=== PATIENT | female | born 1945 | race Caucasian/White ===

== ENCOUNTER 2016-10-20 08:35 | Emergency (ER) | payer OTHER ==
[~2016-10-20] VITALS: Ht 162.6 cm; Wt 84.4 kg
[~2016-10-20 08:35] MED LIST: AGGRENOX1 CAPSULE PO; ALBUTEROL SULF8.5 GM IH; ALEVE220 MG PO; ALLERGY RELIEF1 EAC4 PO; ALLERGY RELIEF10 M5 PO; ANTI-DIARRHEA2 MG PO; ASPIRIN81 M2 PO; ATIVAN0.5 MG PO; BREO ELLIPTA I1 EACH IH; CALCIUM 600 +1 EA15 PO; CALCIUM 600 +1 EAC9 PO; CALTRATE PLUS1 EACH PO; CARVEDILOL25 MG PO; CARVEDILOL6.25 MG PO; CELEXA10 MG PO; CENTRUM SILVER1 EAC3 PO; CENTRUM SILVER1 EAC4 PO; COREG25 M1 PO; COREG6.25 M1 PO; COUMADIN1 MG PO; COUMADIN3 MG PO; CRANBERRY405 MG PO; CRESTOR10 MG PO; CYANOCOBALAM1000 MCG PO; DULCOLAX10 MG PR; DUONEB 2.5-0.5 M3 ML AEROSOL; FLEET ENEMA-AD118 ML PR; FUROSEMIDE20 MG PO; FUROSEMIDE40 MG PO; GLUCOPHAGE500 MG PO; IMODIUM MS REL1 EACH PO; IRON325 M1 PO; LASIX20 MG PO; LASIX40 MG PO; LEVEMIR FL100 UNIT/1 SC; LEVEMIR100 UNIT/2 SC; LEVOFLOXACIN500 MG PO; LEVOFLOXACIN750 MG PO; LIPITOR20 MG PO; LISINOPRIL2.5 MG PO; LISINOPRIL5 MG PO; LO-DOSE ASPIRIN81 M2 PO; LORAZEPAM0.5 MG PO; METFORMIN HCL1000 MG PO; METFORMIN HCL500 MG PO; MILK OF MAGN PO; MULTIPLE VITAM1 EACH PO; NAMENDA5 MG PO; NEXIUM20 MG PO; PLAVIX75 MG PO; PREDNISONE10 MG PO; PREDNISONE20 MG PO; PREDNISONE5 MG PO; PRILOSEC40 MG PO; PRINIVIL5 MG PO; PROMETHAZINE12.5 M1 PO; PROTONIX40 MG PO; PROVENTIL,2.5 MG/3 M IH; RITALIN10 MG PO; SENOKOT,SENN1 TABLET PO; TOPROL XL25 MG PO; TYLENOL REGULA325 MG PO; TYLENOL WITH C1 EACH PO; ULTRAM50 MG PO; VENTOLIN HFA18 GM IH; VITAMIN B12-FO1 EACH PO; VITAMIN D-32000 UNI2 PO; VITRON-C TABLE1 EACH PO; ZESTRIL2.5 MG PO; ZOFRAN4 MG PO
[2016-10-20 09:10] LABS: EOSINOPHIL (%) 0.7 % (0-5); EOSINOPHIL COUNT 0.1 K/uL (0-0.3); HEMATOCRIT 37.8 % (36.0-46.0); IMMATURE GRANULOCYTE (%) 0.7 % (0.0-0.7); IMMATURE GRANULOCYTE COUNT 0.1 K/uL; LYMPHOCYTE COUNT 1.2 K/uL (1.0-2.8); MCH 31.6 PG (29.0-34.0); MCHC 32.5 G/DL (30.0-36.0); MCV 97.2 FL (83-99); MEAN PLAT.VOLUME 9.7 uM^3 (9.5-12.4); MONOCYTE (%) 8.5 % (3-12); MONOCYTE COUNT 0.6 K/uL (0-0.8); NEUTROPHIL (%) 72.2 % (45-76); PLATELET COUNT 198 K/uL (156-360); RBC DIS.WIDTH-CV 12.5 % (11.8-14.6); RBC DIS.WIDTH-SD 45.1 % (39-53); RED BLOOD COUNT 3.89 M/uL (3.80-5.20)
[2016-10-20 09:19] LABS: CHLORIDE 101 mEq/L (99-109); POTASSIUM 4.3 mEq/L (3.7-5.4); SODIUM 138 mEq/L (136-147)
[2016-10-20 09:21] LABS: GLUCOSE 252 mg/dL (70-99)
[2016-10-20 09:22] LABS: ANION GAP 7 MEQ/L (2-14)
[2016-10-20 09:24] LABS: GFR ESTIMATE (CALCULATED) > 59 mL/min/
[2016-10-20 09:25] LABS: UREA NITROGEN (BUN) 15 mg/dL (9-23)
[2016-10-20 09:33] VITALS: BP 122/92
[2016-10-20] MEDS ORDERED: TYLENOL WITH C1 EACH PO (10:03)
== END 2016-10-20 11:59 ==
LOC: EME → EDBD 08:35 → EME 11:59
PROVIDERS: Emergency Medicine
DX: S42.254A Nondisplaced fracture of greater tuberosity of right humerus, initial encounter for closed fracture (principal); S42.294A Other nondisplaced fracture of upper end of right humerus, initial encounter for closed fracture; W07.XXXA Fall from chair, initial encounter; Y92.129 Unspecified place in nursing home as the place of occurrence of the external cause; I10 Essential (primary) hypertension; E11.9 Type 2 diabetes mellitus without complications; Z79.84 Long term (current) use of oral hypoglycemic drugs; E78.5 Hyperlipidemia, unspecified; I50.9 Heart failure, unspecified; J44.9 Chronic obstructive pulmonary disease, unspecified; Z99.81 Dependence on supplemental oxygen; K21.9 Gastro-esophageal reflux disease without esophagitis; F03.90 Unspecified dementia, unspecified severity, without behavioral disturbance, psychotic disturbance, mood disturbance, and anxiety; F41.9 Anxiety disorder, unspecified; Z87.891 Personal history of nicotine dependence; Z88.0 Allergy status to penicillin
CPT/HCPCS: 70450; 73030; 73060; 80048; 85025; 99281; 99284